=== PATIENT | female | born 1980 | race Caucasian/White ===

== ENCOUNTER 2022-09-30 20:10 | Emergency (ER) | payer BC ==
[~2022-09-30] VITALS: Ht 170.2 cm; Wt 65.8 kg
[~2022-09-30 20:10] MED LIST: OXYC5TAB3 PO
[2022-09-30] MEDS ORDERED: ONDANSETRON 4 MG/2 ML VIAL ONE (20:26)
[2022-09-30] MEDS ORDERED: HYDROMORPHONE 2 MG/1 ML DISP.SYRIN ONE (20:26)
[2022-09-30] MEDS ORDERED: ONDANSETRON 4 MG/2 ML VIAL IV ONE (20:30)
[2022-09-30] MEDS ORDERED: IV NORMAL SALINE 1000 ML BAG IV ONE (20:30)
[2022-09-30] MEDS ORDERED: HYDROMORPHONE 1 MG/1 ML DISP.SYRIN IV ONE ×4 (20:30→23:30)
[2022-09-30 20:49] LABS: HEMATOCRIT 42.3 % (31.2-41.9); MEAN CORPUSCULAR HEMOGLOBIN 29.9 uug (24.7-32.8); MEAN CORPUSCULAR VOLUME 87.7 fL (75.5-95.3); PLATELET COUNT (AUTO) 358 K/uL (179-408)
--- NOTE | 2022-09-30 21:00 | NUR ---
Patient's mother stated that patient is allergic to iodine. Dr. Morin notified.
[2022-09-30 21:01] LABS: ALANINE AMINOTRANSFERASE 39 U/L (14-59); ALKALINE PHOSPHATASE 124 U/L (50-136); ASPARTATE AMINOTRANSFERASE 29 U/L (15-37); BILIRUBIN,DIRECT < 0.1 mg/dL (0.0-0.2); BILIRUBIN,TOTAL 0.2 mg/dL (0.2-1.0); CARBON DIOXIDE 26 mmol/L (21-32); CHLORIDE 101 mmol/L (98-107); CREATININE 0.9 mg/dL (0.6-1.3); GLUCOSE 101 mg/dL (74-106); LIPASE 83 U/L (73-393); POTASSIUM 3.7 mmol/L (3.5-5.1); TOTAL PROTEIN, SERUM 7.6 g/dL (6.4-8.2); UREA NITROGEN, BLOOD 14 mg/dL (7-18)
[2022-09-30] MEDS ORDERED: HYDROMORPHONE 1 MG/1 ML DISP.SYRIN ONE ×3 (21:18→23:11)
--- NOTE | 2022-09-30 21:18 | NUR ---
Dr Patience vermaly ordered Dilaudid 1mg IV
--- NOTE | 2022-09-30 21:22 | NUR ---
Dilaudid 1mg IV given
--- NOTE | 2022-09-30 21:41 | NUR ---
Patient's at bedside
--- NOTE | 2022-09-30 21:43 | NUR ---
patient is able to ambulate to the restroom with assistance
[2022-09-30] MEDS ORDERED: diphenhydrAMINE 50 MG/1 ML VIAL ONE (21:52)
[2022-09-30 22:07] LABS: *BILIRUBIN,URIN NEGATIVE (NEGATIVE); *BLOOD, URINE NEGATIVE (NEGATIVE); *CLARITY,URINE CLEAR (CLEAR); *COLOR,URINE YELLOW (YELLOW); *KETONES,URINE NEGATIVE (NEGATIVE); *UROBILINOGEN,URINE 0.2 E.U./dl (NORMAL); LEUKOCYTE ESTERASE ,URINE NEGATIVE (NEGATIVE); NITRITE, URINE NEGATIVE (NEGATIVE); PH,URINE 5.5 (5.0-8.0); UGLUCOSE NEGATIVE (NEGATIVE)
[2022-09-30] MEDS ORDERED: diphenhydrAMINE 50 MG/1 ML VIAL IV ONE (22:15)
[2022-09-30 22:28] LABS: *URINE HCG, QUAL NEGATIVE (NEGATIVE)
--- NOTE | 2022-09-30 22:33 | NUR ---
Patient was taken to CT scan by radiology special procedure tech Walter.
--- NOTE | 2022-09-30 23:00 | NUR ---
Dr Morin verbally ordered Dilaudid 1mg IV.
--- NOTE | 2022-09-30 23:05 | NUR ---
Dilaudid 1mg IV given
[2022-09-30] MEDS ORDERED: MAGNESIUM HYDROXIDE 30 ML LIQUID UDC PO ONE (23:15)
[2022-09-30] MEDS ORDERED: MAGNESIUM HYDROXIDE 30 ML LIQUID UDC ONE (23:16)
[2022-09-30] MEDS ORDERED: IV NS 1000 ML 1,000 ML IV ONE (23:30)
[2022-09-30] MEDS ORDERED: OXYC-128 PO (23:45)
[2022-09-30] MEDS ORDERED: BISA10SU61 RC (23:45)
[2022-09-30] MEDS ORDERED: BISA-79 PO (23:45)
[2022-10-01] MEDS ORDERED: HYDROMORPHONE 1 MG/1 ML DISP.SYRIN ONE ×2 (00:27→00:32)
[2022-10-01] MEDS ORDERED: HYDR4TAB4 PO (00:29)
[2022-10-01] MEDS ORDERED: HYDROMORPHONE 1 MG/1 ML DISP.SYRIN IV ONE ×2 (00:30→00:45)
--- NOTE | 2022-10-01 00:42 | NUR ---
Patient discharged to home in stable condition. Written and verbal after care instructions given. Patient verbalizes understanding of instructions. Stressed follow up or return to ER for worsening s/s. Patient is a/ox4, NAD noted. PAtient is able to walk with steady gait. Patient is accompanied by her and mother
[2022-10-01 00:43] VITALS: BP 139/78
== END 2022-10-01 00:44 | disposition home or self-care (01) ==
LOC: ER 20:15
DX: K59.00 Constipation, unspecified (principal); Z90.49 Acquired absence of other specified parts of digestive tract; Z88.5 Allergy status to narcotic agent; Z91.041 Radiographic dye allergy status; J45.909 Unspecified asthma, uncomplicated
CPT/HCPCS: 99285; 74176; 96374; 96361; 96375; 80076; 80048; 81003; 84703; 83690; 85025; 36415; 93005; 83605 ×2; 96376; J1200; J2405; J1170 ×6; J7040 ×2; A4663

== ENCOUNTER 2023-01-27 19:57 | Inpatient (IN) | payer BC ==
[~2023-01-27] VITALS: Ht 167.6 cm; Wt 70.8 kg
[~2023-01-27 19:57] MED LIST changes: +BISA-79 PO; +BISA10SU61 RC; +HYDR4TAB4 PO
[2023-01-27] MEDS ORDERED: ACETAMINOPHEN ES 500 MG TABLET PO ONE (20:15)
--- NOTE | 2023-01-27 20:22 | NUR ---
Accucheck 136
[2023-01-27 21:08] LABS: HEMATOCRIT 44.3 % (31.2-41.9); MEAN CORPUSCULAR HEMOGLOBIN 29.8 uug (24.7-32.8); MEAN CORPUSCULAR VOLUME 90.1 fL (75.5-95.3); PLATELET COUNT (AUTO) 382 K/uL (179-408)
[2023-01-27] MEDS ORDERED: ACETAMINOPHEN ES 500 MG TABLET ONE (21:12)
--- NOTE | 2023-01-27 21:15 | NUR ---
Patient refused acetaminophen 1000mg PO, patient states it makes her vomit. Dr. Marcial aware.
[2023-01-27] MEDS ORDERED: MAG HYDROX/AL HYDROX/SIMETH 30 ML LIQUID UDC PO ONE (21:30)
[2023-01-27] MEDS ORDERED: LIDOCAINE VISCUS 2% 15 ML UDC MM ONE (21:30)
[2023-01-27 21:32] LABS: CREATINE KINASE, TOTAL 128 U/L (26-192); THYROID STIMULATING HORMONE 2.135 mIU/mL (0.358-3.740)
[2023-01-27 21:33] LABS: ETHANOL < 3 MG/DL (0-0)
[2023-01-27 21:34] LABS: BILIRUBIN,TOTAL 0.3 mg/dL (0.2-1.0); CREATININE 0.8 mg/dL (0.6-1.3); MAGNESIUM 1.8 mg/dL (1.8-2.4); PHOSPHOROUS 3.9 mg/dL (2.5-4.9); TOTAL PROTEIN, SERUM 8.1 g/dL (6.4-8.2)
[2023-01-27 21:39] LABS: ACETAMINOPHEN < 2.0 ug/mL (10-30)
[2023-01-27] MEDS ORDERED: MAG HYDROX/AL HYDROX/SIMETH 30 ML LIQUID UDC ONE (21:39)
[2023-01-27] MEDS ORDERED: LIDOCAINE VISCUS 2% 15 ML UDC ONE (21:39)
[2023-01-27] MEDS ORDERED: LORAZEPAM 2 MG/1 ML VIAL IM ONE (21:45)
[2023-01-27] MEDS ORDERED: LORAZEPAM 2 MG/1 ML VIAL ONE (21:59)
[2023-01-27] MEDS ORDERED: LACTULOSE 20 G/30 ML LIQUID UDC PO ONE (23:30)
[2023-01-27 23:50] LABS: *BILIRUBIN,URIN NEGATIVE (NEGATIVE); *BLOOD, URINE NEGATIVE (NEGATIVE); *CLARITY,URINE CLEAR (CLEAR); *COLOR,URINE YELLOW (YELLOW); *KETONES,URINE NEGATIVE (NEGATIVE); *UROBILINOGEN,URINE 0.2 E.U./dl (NORMAL); LEUKOCYTE ESTERASE ,URINE NEGATIVE (NEGATIVE); NITRITE, URINE NEGATIVE (NEGATIVE); UGLUCOSE NEGATIVE (NEGATIVE)
[2023-01-27 23:56] LABS: *URINE HCG, QUAL NEGATIVE (NEGATIVE)
[2023-01-27 23:59] LABS: *AMPHETAMINE, URINE NEGATIVE (NEGATIVE); *CANNABINOID, URINE NEGATIVE (NEGATIVE); *COCCAINE, URINE NEGATIVE (NEGATIVE); *PHENCYCLIDINE SCREEN,URINE NEGATIVE (NEGATIVE)
[2023-01-28] MEDS ORDERED: LACTULOSE 20 G/30 ML LIQUID UDC ONE (00:23)
[2023-01-28] MEDS ORDERED: ONDA4TAB5 PO (00:39)
[2023-01-28] MEDS ORDERED: SPIR50TA5 PO (00:39)
[2023-01-28] MEDS ORDERED: FLUO40CA8 PO (00:39)
[2023-01-28] MEDS ORDERED: GABA600T12 PO (00:39)
[2023-01-28] MEDS ORDERED: CLON1TAB PO (00:39)
[2023-01-28] MEDS ORDERED: SEMA1PEN SQ (00:39)
[2023-01-28] MEDS ORDERED: FURO-152 PO (00:39)
[2023-01-28] MEDS ORDERED: ESZO3TAB27 PO (00:39)
[2023-01-28] MEDS ORDERED: LEVE1000 PO (00:39)
--- NOTE | 2023-01-28 00:49 | NUR ---
Repeat Accucheck 86
--- NOTE | 2023-01-28 02:00 | NUR ---
Spoke to third floor Charge nurse Maria PADILLA. Patient will be going to third floor 324
--- NOTE | 2023-01-28 02:26 | NUR ---
Patient ambulated to the bathroom 1x assist. Tolerated well. Patient had a large yellow urine.
--- NOTE | 2023-01-28 02:34 | NUR ---
Called [facility] for panel call. Dennise ANDERS pharmacy innovation assistant. Waiting for call back.
--- NOTE | 2023-01-28 02:45 | NUR ---
Dr. Marcial on panel call with Dennise ANDERS. Pending admission.
--- NOTE | 2023-01-28 03:08 | NUR ---
Attempted to give report Maria PADILLA. Unable to take report at the moment. Waiting for call back.
[2023-01-28] MEDS ORDERED: BUPRENORPHINE HCL 2 MG TAB.SUBL SL ONE ×2 (03:13→03:15)
--- NOTE | 2023-01-28 03:14 | NUR ---
Report given to Maria PADILLA
[2023-01-28] MEDS ORDERED: ZOLPIDEM 5 MG TABLET ONE (03:15)
[2023-01-28] MEDS ORDERED: ZOLPIDEM 5 MG TABLET PO PRN (03:15)
--- NOTE | 2023-01-28 03:15 | NUR ---
Patient requesting sleeping aid. Dr. Moctezuma ordered Ambien 5mg PO.
--- NOTE | 2023-01-28 03:37 | NUR ---
Accucheck 85
[2023-01-28] MEDS ORDERED: IV D5 1/2 NS 1000 ML 1,000 ML IV SCH (04:30)
[2023-01-28] MEDS ORDERED: BISACODYL 5 MG TABLET.DR PO SCH (04:30)
[2023-01-28] MEDS ORDERED: REMEDY ESSENTIAL ZINC PASTE 113 GM TP PRN (04:30)
[2023-01-28] MEDS ORDERED: ACETAMINOPHEN 325 MG TABLET PO PRN (04:30)
[2023-01-28] MEDS ORDERED: DEXTROSE 50% 50 ML DISP.SYRIN IV PRN (04:30)
[2023-01-28] MEDS ORDERED: INSULIN REGULAR, HUMAN 300 UNIT/3 ML VIAL SQ PRN (04:30)
[2023-01-28] MEDS ORDERED: ONDANSETRON 4 MG/2 ML VIAL IV PRN (04:30)
[2023-01-28] MEDS ORDERED: MAGNESIUM HYDROXIDE 30 ML LIQUID UDC PO PRN (04:30)
[2023-01-28] MEDS ORDERED: LORAZEPAM 0.5 MG TABLET PO PRN (04:30)
[2023-01-28] MEDS ORDERED: INSULIN REGULAR, HUMAN 300 UNITS/3 ML VIAL SQ PRN (04:30)
--- NOTE | 2023-01-28 04:58 | NUR ---
Patient taken to third floor room 324 via gurney with personal belongings. Patient in stable condition, no signs of distress. Maria PADILLA aware of patients arrival.
--- NOTE | 2023-01-28 05:36 | NUR ---
ADMITTED THIS 42 Y.O. LADY FROM ER, VIA GURNEY ACCOMPANIED BY ER NURSE,APPEARS WEAK ,ALERT AND ORIENTED.SKILLED ASSESSMENT UNABLE TO PERFORM, PT JUST WANTED TO SLEEP AND REST, KEPT ASKING FOR HALF DOSE OF AMBIEN THAT WAS ORIGINALLY ORDERED EARLIER IN ER.IV ACCESS ON LEFT HAND.VITAL SIGNS TAKEN AND RECORDED.NO ACUTE DISTRESS NOTED.
[2023-01-28 05:45] VITALS: BP 96/62
[2023-01-28] MEDS ORDERED: OXYCODONE HCL 5 MG TABLET PO SCH (06:00)
[2023-01-28] MEDS ORDERED: BISACODYL 10 MG SUPP.RECT RC PRN (07:15)
[2023-01-28] MEDS ORDERED: BLOOD SUGAR DIAGNOSTIC 1 EACH STRIP VI SCH (07:30)
[2023-01-28] MEDS: FLUOXETINE HCL 20 MG CAPSULE PO SCH ×2 (08:11→08:51)
[2023-01-28] MEDS: levETIRAcetam 500 MG TABLET PO SCH ×2 (08:11→08:51)
[2023-01-28] MEDS: GABAPENTIN 300 MG CAPSULE PO SCH ×2 (08:12→08:51)
[2023-01-28] MEDS ORDERED: BISACODYL 10 MG SUPP.RECT RC SCH (09:00)
--- NOTE | 2023-01-28 09:09 | NUR ---
Pt. refused all her morning meds including Insulin per sliding scale. Pt. is alert and oriented x4. No c/o pain. Call light within reach. Will keep monitoring the patient.
--- NOTE | 2023-01-28 10:38 | NUR ---
Pt. discharged home. Picked up with her mother and . All personal belonging returned to the patient. Necessary documents signed. Pt. refused the skin assessment upon the discharge. IV line removed.
== END 2023-01-28 10:40 | disposition home or self-care (01) | DRG 442 ==
LOC: ER 19:59 → TRANSITION 01-28 01:30 → MEDSURG3 01-28 03:37
PROVIDERS: ADMIT Internal Medicine; ATTEND Internal Medicine
DX: K76.82 Hepatic encephalopathy (principal); F50.2 Bulimia nervosa; E11.649 Type 2 diabetes mellitus with hypoglycemia without coma; K76.9 Liver disease, unspecified; Z79.4 Long term (current) use of insulin; R26.2 Difficulty in walking, not elsewhere classified; G40.909 Epilepsy, unspecified, not intractable, without status epilepticus; Z79.899 Other long term (current) drug therapy; Z53.20 Procedure and treatment not carried out because of patient's decision for unspecified reasons; R53.1 Weakness; Z20.822 Contact with and (suspected) exposure to COVID-19; Z88.5 Allergy status to narcotic agent; Z91.041 Radiographic dye allergy status; F32.A Depression, unspecified; F41.9 Anxiety disorder, unspecified; Z91.81 History of falling; Z68.25 Body mass index [BMI] 25.0-25.9, adult
CPT/HCPCS: 36415; 70450; 72125; 72131; 83735; 84100; 84443; 84484; 84703; 85025; 93005; A4663; A9150; G0378; G0480; J1815; J2060; J7040

== ENCOUNTER 2023-01-30 17:10 | Emergency (ER) | payer BC ==
[~2023-01-30] VITALS: Ht 167.6 cm; Wt 72.6 kg
[~2023-01-30 17:10] MED LIST changes: +CLON1TAB PO; +ESZO3TAB27 PO; +FLUO40CA8 PO; +FURO-152 PO; +GABA600T12 PO; +LEVE1000 PO; +ONDA4TAB5 PO; +SEMA1PEN SQ; +SPIR50TA5 PO
--- NOTE | 2023-01-30 17:22 | NUR ---
PT IS IN ROOM #1B. DR ELAINE EVALUATED THE PT.
[2023-01-30] MEDS ORDERED: IV NORMAL SALINE 1000 ML BAG IV ONE (17:30)
[2023-01-30 17:41] LABS: HEMATOCRIT 44.4 % (31.2-41.9); MEAN CORPUSCULAR HEMOGLOBIN 29.7 uug (24.7-32.8); MEAN CORPUSCULAR VOLUME 91.9 fL (75.5-95.3); PLATELET COUNT (AUTO) 414 K/uL (179-408)
[2023-01-30 17:50] LABS: CARBON DIOXIDE 30 mmol/L (21-32); CHLORIDE 100 mmol/L (98-107); CREATININE 0.8 mg/dL (0.6-1.3); GLUCOSE 72 mg/dL (74-106); POTASSIUM 4.5 mmol/L (3.5-5.1); UREA NITROGEN, BLOOD 7 mg/dL (7-18)
[2023-01-30 17:56] LABS: ETHANOL < 3 MG/DL (0-0)
[2023-01-30 17:57] LABS: ALANINE AMINOTRANSFERASE 45 U/L (14-59); ALKALINE PHOSPHATASE 156 U/L (50-136); ASPARTATE AMINOTRANSFERASE 20 U/L (15-37); BILIRUBIN,DIRECT 0.1 mg/dL (0.0-0.2); BILIRUBIN,TOTAL 0.3 mg/dL (0.2-1.0); TOTAL PROTEIN, SERUM 8.1 g/dL (6.4-8.2)
[2023-01-30 18:21] LABS: *BILIRUBIN,URIN NEGATIVE (NEGATIVE); *BLOOD, URINE NEGATIVE (NEGATIVE); *CLARITY,URINE CLEAR (CLEAR); *COLOR,URINE YELLOW (YELLOW); *KETONES,URINE NEGATIVE (NEGATIVE); *UROBILINOGEN,URINE 0.2 E.U./dl (NORMAL); LEUKOCYTE ESTERASE ,URINE NEGATIVE (NEGATIVE); NITRITE, URINE NEGATIVE (NEGATIVE); UGLUCOSE NEGATIVE (NEGATIVE)
[2023-01-30] MEDS ORDERED: NAPROXEN 500 MG TABLET PO ONE (19:15)
[2023-01-30] MEDS ORDERED: NAPROXEN 500 MG TABLET ONE (19:18)
--- NOTE | 2023-01-30 19:20 | NUR ---
Received report at this time. Pt has male visitor at bedside.
[2023-01-30] MEDS ORDERED: LORAZEPAM 0.5 MG TABLET ONE (19:28)
[2023-01-30] MEDS ORDERED: LORAZEPAM 0.5 MG TABLET PO ONE (19:30)
--- NOTE | 2023-01-30 19:51 | NUR ---
Notified Dr. Dallas that patient desires to be discharged.
--- NOTE | 2023-01-30 20:23 | NUR ---
Patient discharged to home in stable condition. Written and verbal after care instructions given. Patient verbalizes understanding of instructions. Stressed follow up or return to ER for worsening s/s.
[2023-01-30 20:38] VITALS: BP 106/79
== END 2023-01-30 20:23 | disposition home or self-care (01) ==
LOC: ER 17:10
DX: G40.89 Other seizures (principal); Z91.14 Patient's other noncompliance with medication regimen; R41.82 Altered mental status, unspecified; F50.2 Bulimia nervosa; Z68.25 Body mass index [BMI] 25.0-25.9, adult; J45.909 Unspecified asthma, uncomplicated; E11.9 Type 2 diabetes mellitus without complications; Z88.5 Allergy status to narcotic agent; Z91.041 Radiographic dye allergy status; Z79.899 Other long term (current) drug therapy
CPT/HCPCS: 80076; 80048; 81003; 82140; 85025; 84484; 36415; 70450; 99285; 96360; 83605; 80320; J7040; A4663; C1758; G0480

== ENCOUNTER 2025-06-15 07:15 | Emergency (ER) | payer BC ==
[~2025-06-15] VITALS: Ht 167.6 cm; Wt 65.8 kg
[~2025-06-15 07:15] MED LIST changes: -BISA-79 PO; -BISA10SU61 RC
[2025-06-15] MEDS ORDERED: KETOROLAC TROMETHAMINE 30 MG INJ ONE (08:29)
[2025-06-15] MEDS ORDERED: MAGNESIUM SULFATE/D5W 100 ML ONE ×2 (08:29→09:36)
[2025-06-15] MEDS ORDERED: diphenhydrAMINE 50 MG/1 ML VIAL ONE (08:29)
[2025-06-15] MEDS ORDERED: SUMATRIPTAN SUCCINATE 6 MG/0.5 ML VIAL SQ ONE (08:30)
[2025-06-15 08:38] LABS: PLATELET COUNT (AUTO) 304 K/uL (179-408); RED BLOOD CELL COUNT(AUTO) 4.41 MIL/uL (3.63-4.92); RED CELL DISTRIBUTION WIDTH 13.0 % (12.3-17.7); WHITE BLOOD COUNT (AUTO) 12.7 K/uL (3.8-11.8)
[2025-06-15] MEDS: KETOROLAC TROMETHAMINE 30 MG INJ IVP ONE (08:38)
[2025-06-15] MEDS: IV NS 1000 ML 1,000 ML IV ONE (08:38)
[2025-06-15] MEDS: SUMATRIPTAN SUCCINATE 6 MG/0.5 ML VIAL SQ ONE (08:39)
[2025-06-15] MEDS: MAGNESIUM SULFATE/D5W 100 ML IV SCH (08:39)
[2025-06-15] MEDS: diphenhydrAMINE 50 MG/1 ML VIAL IV ONE (08:39)
[2025-06-15 08:50] LABS: CREATININE 0.9 mg/dL (0.6-1.3); SODIUM SERUM 134.0 mmol/L (136-145); UREA NITROGEN, BLOOD 9.0 mg/dL (7-18)
[2025-06-15 08:56] LABS: ASPARTATE AMINOTRANSFERASE 103.0 U/L (15-37); TOTAL PROTEIN, SERUM 7.4 g/dL (6.4-8.2)
[2025-06-15] MEDS ORDERED: HYDROMORPHONE 1 MG/1 ML DISP.SYRIN ONE ×2 (09:43→12:31)
[2025-06-15] MEDS ORDERED: ONDANSETRON 4 MG/2 ML VIAL ONE (09:43)
[2025-06-15] MEDS: HYDROMORPHONE 1 MG/1 ML DISP.SYRIN IV ONE ×2 (09:52→12:38)
[2025-06-15] MEDS: ONDANSETRON 4 MG/2 ML VIAL IV ONE (09:53)
[2025-06-15] MEDS ORDERED: IOHEXOL 300MG/ML 100 ML INFUS..BTL ONE (09:53)
[2025-06-15] MEDS ORDERED: SWABABLE VALVE TRANSFER SET EA MC ONE (09:53)
[2025-06-15] MEDS ORDERED: IV NORMAL SALINE 0 ML IV ONE (09:53)
[2025-06-15 11:39] LABS: *BILIRUBIN,URIN NEGATIVE (NEGATIVE); *BLOOD, URINE NEGATIVE (NEGATIVE); *CLARITY,URINE CLEAR (CLEAR); *COLOR,URINE YELLOW (YELLOW); *KETONES,URINE NEGATIVE (NEGATIVE); *PROTEIN,URINE NEGATIVE (NEGATIVE); *UROBILINOGEN,URINE 0.2 E.U./dl (NORMAL); LEUKOCYTE ESTERASE ,URINE NEGATIVE (NEGATIVE); NITRITE, URINE NEGATIVE (NEGATIVE); UGLUCOSE NEGATIVE (NEGATIVE)
[2025-06-15 13:33] VITALS: BP 108/76; O2SAT 98
[2025-06-16 03:07] LABS: HEPATITIS A AB, TOTAL Negative (Negative); HEPATITIS B SURFACE AB, QUAL Reactive (.); HEPATITIS C VIRUS ANTIBODY Non Reactive (Non Reactive)
== END 2025-06-15 13:30 | disposition home or self-care (01) ==
LOC: ER 07:15
DX: G43.909 Migraine, unspecified, not intractable, without status migrainosus (principal); E88.810 Metabolic syndrome; R74.01 Elevation of levels of liver transaminase levels; R61 Generalized hyperhidrosis; E11.9 Type 2 diabetes mellitus without complications; G40.909 Epilepsy, unspecified, not intractable, without status epilepticus; J45.909 Unspecified asthma, uncomplicated; Z79.4 Long term (current) use of insulin; Z79.899 Other long term (current) drug therapy; Z88.5 Allergy status to narcotic agent; Z88.8 Allergy status to other drugs, medicaments and biological substances
CPT/HCPCS: 99285; 74176; 96365; 96375; 96366; 80076; 80048; 81003; 83735; 85025; 36415; 96376; 86708; 86803; 86706; 96372; J1885; J1200; J3475 ×2; J2405; Q9967; J3030; J1171 ×2; J7040; A4606; A4663